=== PATIENT | male | born 1990 | race Caucasian/White ===

== ENCOUNTER 2016-12-02 10:34 | Emergency (ER) | payer OTHER ==
--- NOTE | 2016-12-02 14:22 | ED CLINICAL REPORT ---
Clinical Report - Physicians/Mid Levels [facility] [address] [place] [address] 12/02/2016 10:34 Patient: ADILENE GONZALEZ Time Seen: 11:38 Dec 02 2016. Arrived- By private vehicle. Historian- patient. CPT: ER phys charges level 3 (#[id number]). HISTORY OF PRESENT ILLNESS Chief Complaint: TROUBLE CONCENTRATING and "FELT STRANGE" (states foggy headed). ( Also just started Flexeril for chronic neck pain.). 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 At its maximum, severity described as moderate. When seen in the E.D., severity described as mild. Modifying factors- (Worse after flexeril.). (The patient has felt anxious after developing symptoms of grogginess. He is quite worried about the possibility of having diabetes.). Similar symptoms previously: None. Recent medical care: Not recently seen/assessed. REVIEW OF SYSTEMS No fever, sore throat, sinus drainage, nasal congestion or cough. No difficulty breathing, chest pain, abdominal pain, nausea or vomiting. No diarrhea, black stools, bloody stools, difficulty with urination or skin rash. No back pain, calf pain, headache, blackouts or double vision. No difficulty with ambulation. All systems otherwise negative, except as recorded above. PAST HISTORY Anxiety Reaction. Neck Injury. ADDITIONAL SURGERIES: Broken femur. Medications: None. Allergies: No Known Drug Allergy. SOCIAL HISTORY Never smoker. Occasional alcohol use. History of drug use: marijuana. ADDITIONAL NOTES The nursing notes have been reviewed. PHYSICAL EXAM Vital Signs: 12/02/2016 10:53 BP: 145/82. HR: 113. RR: 18. O2 saturation: 99%. Temp: 98.7 F. Appearance: Alert. No acute distress. Eyes: Pupils equal, round and reactive to light. Eyes normal inspection. ENT: Ears normal. Nose normal. Pharynx normal. Neck: Normal inspection. Neck supple. CVS: Normal heart rate and rhythm. Heart sounds normal. Pulses normal. Respiratory: No respiratory distress. Breath sounds normal. Chest nontender. Abdomen: Soft and nontender. Bowel sounds normal. Back: Normal inspection. No CVA tenderness. Skin: Skin warm. Normal skin color. No rash. Extremities: Extremities exhibit normal ROM. No lower extremity edema. Neuro: Oriented X 3. No motor deficit. No sensory deficit. Reflexes normal. LABS, X-RAYS, AND EKG Laboratory Tests: UA-Culture if indicated: (JOYA: 12/02/2016 13:30) ( [facility] 12/02/2016 14:06) Final results Test Result Flag Units (Reference) URINE COLOR STRAW URINE APPEARANCE CLEAR URINE GLUCOSE NEGATIVE (NEGATIVE) URINE BILIRUBIN NEGATIVE (NEGATIVE) URINE KETONE NEGATIVE (NEGATIVE) URINE SPECIFIC GRAVITY 1.010 (1.010-1.030) URINE PH 5.5 (5.0-8.0) URINE PROTEIN NEGATIVE (NEGATIVE) URINE UROBILINOGEN 0.2 EU/dL (0.2-1.0) URINE NITRITE NEGATIVE (NEGATIVE) URINE BLOOD TRACE-INTACT (NEGATIVE) URINE LEUK ESTERASE NEGATIVE (NEGATIVE) URINE RBC RARE rbc/hpf (0-1) URINE WBC NONE SEEN wbc/hpf (0-1) URINE EPITHELIAL CELLS NONE SEEN EPI/hpf (0-5) URINE BACTERIA NONE SEEN (NONE SEEN) URINE COMMENT CULT NOT INDICATED URINE CULTURES ARE SET-UP BASED ON THE FOLLOWING CRITERIA:POSITIVE NITRITEPOSITIVE LEUKOCYTE ESTERASEGREATER THAN 10 WHITE BLOOD CELLSMODERATE (2+) OR GREATER BACTERIA Urine Drug Screen: (JOYA: 12/02/2016 13:30) ( [facility] 12/02/2016 13:58) Final results Test Result Flag Units (Reference) AMPHETAMINE/METHAMPHETAMINE NEGATIVE (NEGATIVE) BARBITURATE NEGATIVE (NEGATIVE) BENZODIAZEPINE NEGATIVE (NEGATIVE) CANNABINOID POSITIVE H (NEGATIVE) COCAINE NEGATIVE (NEGATIVE) ECSTASY NEGATIVE (NEGATIVE) METHADONE NEGATIVE (NEGATIVE) OPIATE NEGATIVE (NEGATIVE) The urine drug screen is a qualitative screening test fordrug overdose and abuse. All screen results should beconsidered as presumptive.Drugs screened for are as follows:BenzodiazepinesCocaineAmphetamines/MetamphetaminesTHC (Tetrahydrocannabinol)OpiatesBarbituratesEcstasyMethadonePositive results are unconfirmed. For confirmation, notifythe lab for the specimen to be sent to the reference lab.All confirmations must be performed by a differentmethodology.The ingestion of natural herbal and plant productscontaining Ephedra/Ephedra metabolites can produce in urineone or more substances capable of cross reacting withamphetamine/methamphetamine immunoassays. These testsprovide a preliminary result only. A more specificalternative chemical method must be used to obtain aconfirmed analytical result. . PROGRESS AND PROCEDURES Course of Care: Patient's Accu-Chek was 74. Urinalysis was unremarkable. His neurologic exam is unremarkable. Patient most likely has had adverse effects related to Flexeril and then secondary anxiety. We'll stop Flexeril and replace that with Robaxin. He will follow up for further evaluation. Patient is stable. Patient/family counseled. Disposition: Discharged. Condition: stable. CLINICAL IMPRESSION Adverse reaction to flexeril Anxiety Disc disease of the cervical spine. INSTRUCTIONS No strenuous activity. (Continue neck therapy). Prescription Medications: Robaxin 750 mg: Take 2 orally every 6 hours as needed for muscle spasm. Dispense thirty (30). No refills. Substitution is permissible. Follow-up: Follow up with your doctor in one week. Call for an appointment. Understanding of the discharge instructions verbalized by patient. (Electronically signed by Carlos Mcclain MD 12/02/2016 18:22)
--- NOTE | 2016-12-02 14:22 | ED CLINICAL REPORT ---
Clinical Report - Physicians/Mid Levels [facility] [address] [place] [address] 12/02/2016 10:34 Patient: ADILENE GONZALEZ Time Seen: 11:38 Dec 02 2016. Arrived- By private vehicle. Historian- patient. CPT: ER phys charges level 3 (#[id number]). HISTORY OF PRESENT ILLNESS Chief Complaint: TROUBLE CONCENTRATING and "FELT STRANGE" (states foggy headed). ( Also just started Flexeril for chronic neck pain.). 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 At its maximum, severity described as moderate. When seen in the E.D., severity described as mild. Modifying factors- (Worse after flexeril.). (The patient has felt anxious after developing symptoms of grogginess. He is quite worried about the possibility of having diabetes.). Similar symptoms previously: None. Recent medical care: Not recently seen/assessed. REVIEW OF SYSTEMS No fever, sore throat, sinus drainage, nasal congestion or cough. No difficulty breathing, chest pain, abdominal pain, nausea or vomiting. No diarrhea, black stools, bloody stools, difficulty with urination or skin rash. No back pain, calf pain, headache, blackouts or double vision. No difficulty with ambulation. All systems otherwise negative, except as recorded above. PAST HISTORY Anxiety Reaction. Neck Injury. ADDITIONAL SURGERIES: Broken femur. Medications: None. Allergies: No Known Drug Allergy. SOCIAL HISTORY Never smoker. Occasional alcohol use. History of drug use: marijuana. ADDITIONAL NOTES The nursing notes have been reviewed. PHYSICAL EXAM Vital Signs: 12/02/2016 10:53 BP: 145/82. HR: 113. RR: 18. O2 saturation: 99%. Temp: 98.7 F. Appearance: Alert. No acute distress. Eyes: Pupils equal, round and reactive to light. Eyes normal inspection. ENT: Ears normal. Nose normal. Pharynx normal. Neck: Normal inspection. Neck supple. CVS: Normal heart rate and rhythm. Heart sounds normal. Pulses normal. Respiratory: No respiratory distress. Breath sounds normal. Chest nontender. Abdomen: Soft and nontender. Bowel sounds normal. Back: Normal inspection. No CVA tenderness. Skin: Skin warm. Normal skin color. No rash. Extremities: Extremities exhibit normal ROM. No lower extremity edema. Neuro: Oriented X 3. No motor deficit. No sensory deficit. Reflexes normal. LABS, X-RAYS, AND EKG Laboratory Tests: UA-Culture if indicated: (JOYA: 12/02/2016 13:30) ( [facility] 12/02/2016 14:06) Final results Test Result Flag Units (Reference) URINE COLOR STRAW URINE APPEARANCE CLEAR URINE GLUCOSE NEGATIVE (NEGATIVE) URINE BILIRUBIN NEGATIVE (NEGATIVE) URINE KETONE NEGATIVE (NEGATIVE) URINE SPECIFIC GRAVITY 1.010 (1.010-1.030) URINE PH 5.5 (5.0-8.0) URINE PROTEIN NEGATIVE (NEGATIVE) URINE UROBILINOGEN 0.2 EU/dL (0.2-1.0) URINE NITRITE NEGATIVE (NEGATIVE) URINE BLOOD TRACE-INTACT (NEGATIVE) URINE LEUK ESTERASE NEGATIVE (NEGATIVE) URINE RBC RARE rbc/hpf (0-1) URINE WBC NONE SEEN wbc/hpf (0-1) URINE EPITHELIAL CELLS NONE SEEN EPI/hpf (0-5) URINE BACTERIA NONE SEEN (NONE SEEN) URINE COMMENT CULT NOT INDICATED URINE CULTURES ARE SET-UP BASED ON THE FOLLOWING CRITERIA:POSITIVE NITRITEPOSITIVE LEUKOCYTE ESTERASEGREATER THAN 10 WHITE BLOOD CELLSMODERATE (2+) OR GREATER BACTERIA Urine Drug Screen: (JOYA: 12/02/2016 13:30) ( [facility] 12/02/2016 13:58) Final results Test Result Flag Units (Reference) AMPHETAMINE/METHAMPHETAMINE NEGATIVE (NEGATIVE) BARBITURATE NEGATIVE (NEGATIVE) BENZODIAZEPINE NEGATIVE (NEGATIVE) CANNABINOID POSITIVE H (NEGATIVE) COCAINE NEGATIVE (NEGATIVE) ECSTASY NEGATIVE (NEGATIVE) METHADONE NEGATIVE (NEGATIVE) OPIATE NEGATIVE (NEGATIVE) The urine drug screen is a qualitative screening test fordrug overdose and abuse. All screen results should beconsidered as presumptive.Drugs screened for are as follows:BenzodiazepinesCocaineAmphetamines/MetamphetaminesTHC (Tetrahydrocannabinol)OpiatesBarbituratesEcstasyMethadonePositive results are unconfirmed. For confirmation, notifythe lab for the specimen to be sent to the reference lab.All confirmations must be performed by a differentmethodology.The ingestion of natural herbal and plant productscontaining Ephedra/Ephedra metabolites can produce in urineone or more substances capable of cross reacting withamphetamine/methamphetamine immunoassays. These testsprovide a preliminary result only. A more specificalternative chemical method must be used to obtain aconfirmed analytical result. . PROGRESS AND PROCEDURES Course of Care: Patient's Accu-Chek was 74. Urinalysis was unremarkable. His neurologic exam is unremarkable. Patient most likely has had adverse effects related to Flexeril and then secondary anxiety. We'll stop Flexeril and replace that with Robaxin. He will follow up for further evaluation. Patient is stable. Patient/family counseled. Disposition: Discharged. Condition: stable. CLINICAL IMPRESSION Adverse reaction to flexeril Anxiety Disc disease of the cervical spine. INSTRUCTIONS No strenuous activity. (Continue neck therapy). Prescription Medications: Robaxin 750 mg: Take 2 orally every 6 hours as needed for muscle spasm. Dispense thirty (30). No refills. Substitution is permissible. Follow-up: Follow up with your doctor in one week. Call for an appointment. Understanding of the discharge instructions verbalized by patient. (Electronically signed by Carlos Mcclain MD 12/02/2016 18:22)
--- NOTE | 2016-12-02 14:23 | ED ORDER SUMMARY ---
..... Patient: ADILENE GONZALEZ OrderSheet [facility] VisitID: [id number] [place] [address] 26y, M Registration Date/Time: 12/02/2016 ORDER SHEET Weight: 105.2 kg (stated) Allergies: No Known Drug Allergy GENERAL ORDERS: - (acu check blood sugar.) (11:48 12/02/2016 Laurie HARE) (Ack 11:52 LMuller) (11:56 LWhalen R.N.) Urine Drug Screen Urgent (11:48 12/02/2016 Laurie HARE) (Ack 11:52 LMuller) (11:56 LWhalen R.N.) UA-Culture if indicated Urgent (11:48 12/02/2016 Laurie HARE) (Ack 11:52 LMuller) (11:56 LWhalen R.N.) MEDICATION ORDERS: IV FLUIDS: ORDER SHEET NOTES: [Electronically signed by Carlos Mcclain MD (18:22 12/02/2016)] [Electronically signed by Adry Brooks R.N. (19:12/02/2016)] [Electronically locked/signed by Adry Brooks R.N. (19:12/02/2016)]
--- NOTE | 2016-12-02 14:23 | ED NURSING NOTES ---
Clinical Report - Nurses [facility] [address] [place] [address] 12/02/2016 10:34 Patient: ADILENE GONZALEZ TRIAGE Triage time 10:53 Dec 02 2016. Acuity: LEVEL 3. Chief Complaint: TROUBLE CONCENTRATING and "FELT STRANGE" (states foggy headed). MEGHAN COMA SCORE: Meghan Coma Scale: 15- eyes open spontaneously (4); best verbal response- oriented x 4 (5); best motor response- obeys commands (6). --10:57 Adry Brooks R.N. 10:53 12/02/16. BP: 145/82. HR: 113. RR: 18. O2 saturation: 99%. Temp: 98.7 F. Pain level now 5/10. --10:57 Adry Brooks R.N. Weight: 105.2 kg stated. Height/Length: 65 inches Per Patient. BMI: 38.6. --10:56 Adry Brooks R.N. Medications None. --10:54 Adry Brooks R.N. Allergies No Known Drug Allergy. --10:54 Adry Brooks R.N. History Arrived by private vehicle. Historian: patient. Primary physician (). This started 3 days. Treatment COMMERCIAL LITIGATION ATTORNEY: None. PAST MEDICAL HX: No history of stroke, diabetes mellitus or hypertension. No history of dementia or seizures. Immunizations: up-to-date. SOCIAL HX: Never smoker. Occasional alcohol use. History of drug use: marijuana. No infectious disease exposure. SELF HARM ASSESSMENT: A self harm assessment was performed. The patient answered "yes" to the question "Have you recently felt down, depressed, or hopeless?" and "no" to the question "Do you have thoughts of harming or killing yourself?". FALL RISK ASSESSMENT: Fall risk assessment completed. No fall risk identified. NUTRITIONAL RISK ASSESSMENT: The nutritional risk assessment revealed no deficiencies. FUNCTIONAL ASSESSMENT: Functional assessment: no impairments noted. LEARNING NEEDS ASSESSMENT: The learning needs assessment revealed no barriers. ABUSE ASSESSMENT: Abuse assessment: (yes) The patient was asked "Do you feel safe in your home?". SKIN INTEGRITY ASSESSMENT: Skin integrity risk assessment completed. No skin integrity risk identified. --10:57 Adry Brooks R.N. PROBLEMS: Anxiety Reaction. Neck Injury. --10:55 Adry Brooks R.N. ADDITIONAL SURGERIES: Broken femur . --10:55 Adry Brooks R.N. Interventions ID band on patient. --10:57 Adry Brooks R.N. PHYSICAL ASSESSMENT ( Patient states on a low carb diet and last low carb diet he kind of felt this way. Patient states he gets shaky and can't think straight not disoriented but in a "fog".). GENERAL / NEURO / PSYCH: Awake. Oriented X 4. Alert. Appears anxious. Speech normal. Mood/affect normal. Moves all extremities. No motor deficit. No sensory deficit. HEENT: No facial asymmetry noted. Pupils equal, round and reactive to light. EOM intact. Pharynx within normal limits. RESPIRATORY: Breath sounds within normal limits. Respirations not labored. CVS: Normal sinus rhythm noted. Capillary refill less than 2 seconds. SKIN: Skin is intact, warm and dry. --10:58 Adry Brooks R.N. Ambulatory to room. Baseline functional status: usually alert, oriented x4 and cooperative. --10:58 Adry Brooks R.N. NURSING PROGRESS NOTES Reassurance given. Call light placed in reach. Side rails up x 1. Bed placed in lowest position. Brakes of bed on. --10:59 Adry Brooks R.N. Finger stick glucose: 74; performed by nurse. ( Patient states last food was at 1000.). --11:57 Adry Brooks R.N. ( Patient given water to help with the collection of urine.). --11:57 Adry Brooks R.N. DISPOSITION / DISCHARGE Departure time: 14:45 Dec 02 2016. Condition at departure: improved. No learning barriers present. Discharge instructions provided and reviewed with the patient. Reviewed warnings. Reviewed medication(s). Treatments reviewed. Reviewed referrals. Patient verbalized understanding. Written instructions provided in Beninese. The patient was discharged home. He left the Emergency Department ambulatory and via private vehicle. Patient driving. --15:04 Adry Brooks R.N. 14:54 12/02/16. BP: 139/78. HR: 80. RR: 18. O2 saturation: 98%. Temp: 98.0 F. Pain level now 0/10. --15:04 Adry Brooks R.N. Locked/Released at 12/02/2016 19:11 by Adry Brooks R.N.
--- NOTE | 2016-12-02 14:23 | ED ORDER SUMMARY ---
..... Patient: ADILENE GONZALEZ OrderSheet [facility] VisitID: [id number] [place] [address] 26y, M Registration Date/Time: 12/02/2016 ORDER SHEET Weight: 105.2 kg (stated) Allergies: No Known Drug Allergy GENERAL ORDERS: - (acu check blood sugar.) (11:48 12/02/2016 Laurie HARE) (Ack 11:52 LMuller) (11:56 LWhalen R.N.) Urine Drug Screen Urgent (11:48 12/02/2016 Laurie HARE) (Ack 11:52 LMuller) (11:56 LWhalen R.N.) UA-Culture if indicated Urgent (11:48 12/02/2016 Laurie HARE) (Ack 11:52 LMuller) (11:56 LWhalen R.N.) MEDICATION ORDERS: IV FLUIDS: ORDER SHEET NOTES: [Electronically signed by Carlos Mcclain MD (18:22 12/02/2016)] [Electronically signed by Adry Brooks R.N. (19:12/02/2016)] [Electronically locked/signed by Adry Brooks R.N. (19:12/02/2016)]
--- NOTE | 2016-12-02 19:12 | ED MED RECONCILIATION SUMMARY ---
Patient: ADILENE GONZALEZ Medication Reconciliation Report [facility] VisitID: [id number] [place] [address] 26y, M Registration Date/Time: 12/02/2016 Weight: 105.2 kg Height/Length: 65 in. BMI: 38.6 ALLERGIES: No Known Drug Allergy The patient's Home Medications are listed below: NONE. The source(s) of the original Home Medication information: Not obtained. The following Medications were given to the patient in the Emergency Department: None. The following Medications were prescribed to the patient: Robaxin 750 mg: Take 2 orally every 6 hours as needed for muscle spasm. Dispense thirty (30). No refills. Substitution is permissible. -- Carlos Mcclain MD
--- NOTE | 2016-12-02 19:12 | ED MAR SUMMARY ---
..... Medication Administration Record [facility] [address] [place] [place], [place] [id number] Patient: ADILENE GONZALEZ Visit ID: [id number] 26y, M Weight: 105.2 kg Height/Length: 65 in BMI: 38.6 ALLERGIES: No Known Drug Allergy
--- NOTE | 2016-12-02 19:12 | ED MED RECONCILIATION SUMMARY ---
Patient: ADILENE GONZALEZ Medication Reconciliation Report [facility] VisitID: [id number] [place] [address] 26y, M Registration Date/Time: 12/02/2016 Weight: 105.2 kg Height/Length: 65 in. BMI: 38.6 ALLERGIES: No Known Drug Allergy The patient's Home Medications are listed below: NONE. The source(s) of the original Home Medication information: Not obtained. The following Medications were given to the patient in the Emergency Department: None. The following Medications were prescribed to the patient: Robaxin 750 mg: Take 2 orally every 6 hours as needed for muscle spasm. Dispense thirty (30). No refills. Substitution is permissible. -- Carlos Mcclain MD
--- NOTE | 2016-12-02 19:12 | ED DISCHARGE INSTRUCTIONS ---
Patient: ADILENE GONZALEZ General Instructions [facility] VisitID: [id number] [place] [address] 26y, M Registration Date/Time: 12/02/2016 Adverse reaction to flexeril Anxiety Disc disease of the cervical spine. INSTRUCTIONS No strenuous activity. (Continue neck therapy). Prescription Medications: Robaxin 750 mg: Take 2 orally every 6 hours as needed for muscle spasm. Dispense thirty (30). No refills. Substitution is permissible. Follow-up: Follow up with your doctor in one week. Call for an appointment. Understanding of the discharge instructions verbalized by patient. No strenuous activity. (Electronically signed by Carlos Mcclain MD 12/02/2016 18:22)
--- NOTE | 2016-12-02 19:12 | ED MAR SUMMARY ---
..... Medication Administration Record [facility] [address] [place], [place] [id number] Patient: ADILENE GONZALEZ Visit ID: [id number] 26y, M Weight: 105.2 kg Height/Length: 65 in BMI: 38.6 ALLERGIES: No Known Drug Allergy
--- NOTE | 2016-12-02 19:12 | ED DISCHARGE INSTRUCTIONS ---
Patient: ADILENE GONZALEZ General Instructions [facility] VisitID: [id number] [place] [address] 26y, M Registration Date/Time: 12/02/2016 Adverse reaction to flexeril Anxiety Disc disease of the cervical spine. INSTRUCTIONS No strenuous activity. (Continue neck therapy). Prescription Medications: Robaxin 750 mg: Take 2 orally every 6 hours as needed for muscle spasm. Dispense thirty (30). No refills. Substitution is permissible. Follow-up: Follow up with your doctor in one week. Call for an appointment. Understanding of the discharge instructions verbalized by patient. No strenuous activity. (Electronically signed by Carlos Mcclain MD 12/02/2016 18:22)
== END 2016-12-02 14:45 | disposition home or self-care (01) ==
LOC: ED SRH 10:34
DX: F41.9 Anxiety disorder, unspecified (principal); T48.1X5A Adverse effect of skeletal muscle relaxants [neuromuscular blocking agents], initial encounter; Y92.9 Unspecified place or not applicable; M50.90 Cervical disc disorder, unspecified, unspecified cervical region
CPT/HCPCS: 90004; 90098; 92760; 92761; 92762; 92763; 92764; 92765; 92766; 92767